=== PATIENT | male | born 1960 | race Caucasian/White ===

== ENCOUNTER 2024-06-13 13:01 | Emergency (ER) | payer MEDICAID ==
[~2024-06-13] VITALS: Ht 165.1 cm; Wt 75.0 kg
[2024-06-13 13:09] VITALS: BP 136/48; PULSE 67; RESP 16; TEMP 98.4; O2SAT 98
[2024-06-13 14:01] LABS: APPEARANCE,URINE CLEAR (CLEAR); BILIRUBIN,URINE NEGATIVE (NEGATIVE); BLOOD, URINE TRACE-I (NEGATIVE); COLOR,URINE YELLOW (YELLOW); LEUKOCYTE ESTERASE ,URINE NEGATIVE (NEGATIVE); NITRITE, URINE NEGATIVE (NEGATIVE); PROTEIN,URINE NEGATIVE (NEGATIVE); UGLUCOSE NEGATIVE (NEGATIVE); UROBILINOGEN,URINE 0.2 EU/dL (0.2 - 1)
[2024-06-13] MEDS: LIDOCAINE 5% 1 EA PATCH TP ONE (14:03)
[2024-06-13] MEDS: KETOROLAC 30 MG/ML VIAL IM ONE (14:03)
[2024-06-13] MEDS ORDERED: LID5T TP (14:24)
[2024-06-13] MEDS ORDERED: NAPR-337 PO (14:24)
== END 2024-06-13 14:31 | disposition home or self-care (01) ==
LOC: MED 13:01
DX: R10.9 Unspecified abdominal pain (principal); M54.6 Pain in thoracic spine; M54.50 Low back pain, unspecified; Z79.899 Other long term (current) drug therapy
CPT/HCPCS: 81003; 96372; 99283; J1885